=== PATIENT | male | born 1990 | race Hispanic/Latino ===

== ENCOUNTER 2016-08-02 14:46 | Emergency (ER) | payer MEDICAID ==
[2016-08-02 16:45] VITALS: BP 136/91
--- NOTE | 2016-08-02 16:45 | ERNOTE ---
Back Pain ER HPI Date of Service: 08/02/16 Presenting Symptoms: hx chronic back pain Time Seen by Provider: 08/02/16 16:27 Source: patient Exam Limitations: no limitations Immunizations: IMMUNIZATION HX Immunizations Up to Date Yes History of Influenza Vaccine No Hx Pneumococcal Vaccination No Allergies/Adverse Reactions: Allergies No Known Allergies Allergy (Verified 08/02/16 14:56) Home Medications: HOME MEDICATIONS NK [No Home Medication] 08/02/16 [Last Taken Unknown] Narrative: Patient presents with increased chronic pain in his back. He relates this has been there for some time but worse over the last moth or greater. Same pain as he has been having. No acute or new N/T/W. no fever. No new injury. he tells me he was at work and he couldn't work d/t the pain so came in for a work note. Has medications he takes at home for this. There is nothign new or different about this. No fever. No vomiting. No acute N/T/W. Timing: Reports: constant Quality/Severity: Reports: other - same as his chronic back pain, nothgin different about it Location of pain: Reports: upper back, no radiation Recent Injury?: Reports: no Modifying Factors - (Improves): Reports: other - rest Modifying Factors - (Worsens): Reports: movement to right, movement to left, movement flexion Associated Symptoms: Denies: fever/chills, constipation/incontinence, nausea/ vomiting, difficulty walking, numbess/weakness in legs Prior Treament: Reports: other - has had x-rays for this in the past. Review of Systems - Review of Systems Constitutional: Absent: fever EYE: Present: no symptoms reported ENT: Present: no symptoms reported Respiratory: Present: no symptoms reported Cardiology: Present: no symptoms reported Gastrointestinal/Abdominal: Present: no symptoms reported Musculoskeletal: Present: See HPI - Patient's Past Medical History Patient History - Medical: Anxiety, Bipolar, Depression Patient History - Cardiac/Respiratory: No pertinent hx Patient History - Cancer: No Hx of Cancer Patient History - Surgical Procedures: Appendectomy - Family History Mother Family History - Medical: History Unknown Father Family History - Medical: - Social History Living Situations: home Smoking Status: Current every day smoker Have you smoked in the past 12 months: Yes Do you dip or chew tobacco: No Alcohol Use: occasionally Drug Use: none Physical Exam - Physical Exam General Appearance: Present: alert, no apparent distress Eye Exam: Normal inspection: bilateral, PERRL: bilateral Ears, Nose, Throat: Present: normal ENT inspection. Absent: dry mucous membranes Neck: Present: normal inspection Respiratory: Present: no respiratory distress, normal breath sounds, no accessory muscle use, lungs clear Cardiovascular/Chest: Present: regular rate, rhythm Gastrointestinal/Abdominal: Present: normal bowel sounds, nontender, soft, no organomegaly Back Exam: Present: no vertebral tenderness, other - left pasraspinal muscular tenderness. This completely reproduces his pain. Clinically all muscular pain. No vertebral pain.. 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 No motor or sensory deficits.. Absent: motor weakness Skin Exam: Absent: skin rash ED Progress - Vital Signs Patient's Vital Signs:: I have reviewed the patient's vital signs. Vital Signs: Vital Signs 08/02/16 14:53 Temperature 36.8 C Pulse Rate 129 H Respiratory 14 Rate Blood Pressure 161/90 O2 Sat by Pulse 99 Oximetry - Progress/Reassessment Chief Complaint: Back Pain Progress Note-Subjective: 08/02/16 16:43 SAme as chronic. Nothing different about it. he request a work note. I offered him further eval but he declines this. He understands risks and benefits. He wishes only a workl note. No Neuro deficits. I discussed warning signs and reasonss to return as well as the need for close f/u. Nothing to suggest diskitis, abscess or other acute life threat. Departure Clinical Impression: Back pain - Departure Disposition: Home self-care Condition: Stable Instructions: Back Pain, Adult Additional Instructions: Rest. Work note. Follow-up with primary doctor this week. Return for numbness , tingling, weakness, increased pain or if your condition worsens or changes in any way.
== END 2016-08-02 16:48 | disposition home or self-care (01) ==
LOC: ER 14:46
DX: M54.9 Dorsalgia, unspecified (principal); F17.210 Nicotine dependence, cigarettes, uncomplicated

== ENCOUNTER 2016-09-15 07:30 | Emergency (ER) | payer MEDICAID ==
[2016-09-15] MEDS ORDERED: DICYCLOMINE HCL 10 MG/ML AMPUL IM ONE ×2 (08:14→08:19)
[2016-09-15] MEDS ORDERED: ONDANSETRON HCL/PF 2 MG/ML VIAL IV ONE (08:14)
[2016-09-15] MEDS ORDERED: NORMAL SALINE 1,000 ML in NORMAL SALINE 1,000 ML IV ONE (08:14)
[2016-09-15] MEDS ORDERED: ONDANSETRON HCL/PF 2 MG/ML VIAL ONE (08:19)
--- OUTSIDE RECORDS SUMMARY | 2016-09-15 08:25 | XMS REPORT | CCD ---
:1990 Author Name TRUE MARTINEZ Keisha Address [address] [facility] Unavailable [place], [place] [id number] Care Team Providers Name Role Phone JAVAN BUCIO Attending Physician Unavailable JAVAN BUCIO Er Physician 1 Unavailable NOAM Peralta Registered Nurse Unavailable Vital Signs Vital Sign Value Unit Date/Time Recent/Initial? Weight Measured 225 lbs 03/16/2015 14:08 Initial VS Height 66 in 03/16/2015 14:08 Initial VS BMI (Body Mass Index) 36.32 kg/m^2 03/16/2015 14:08 Initial VS BSA (Body Surface Area) 2.18 m^2 03/16/2015 14:08 Initial VS BP Systolic 148 mmHg 03/16/2015 14:08 Initial VS BP Diastolic 86 mmHg 03/16/2015 14:08 Initial VS Allergies Allergy Code Allergy Type Reaction Status No Known Allergies 0 No known allergies Active Procedures Unknown or Not Available. History of Immunizations Unknown or Not Available. Problems Unknown or Not Available. Results Unknown or Not Available. Active Medications Unknown or Not Available. Medications Administered During Visit Unknown or Not Available. Encounters Encounter Diagnosis Diagnosis Code Start Date DENTAL DISORDER NOS 5259 03/16/2015 Social History Smoking Status Code Start Date End Date Current every day smoker [id number] Patient Decision Aids Unknown or Not Available. Discharge Instructions You were admitted to [facility] on 03/16/2015 with a principal diagnosis of DENTAL DISORDER NOS. You were discharged from [facility] on 03/16/2015. Should you have any questions prior to discharge, please contact a member of your healthcare team. If you have left the hospital and have any questions, please contact your primary care physician. Chief Complaint and Reason For Visit Chief Complaint Date of Onset TOOTH PAIN Function Status Unknown or Not Available. Plan of Care Unknown or Not Available. Referral/Transition of Care Unknown or Not Available.
--- OUTSIDE RECORDS SUMMARY | 2016-09-15 08:25 | XMS REPORT | Continuity of Care Document ---
:1990 Author Organization [facility] ([facility]) [place] [address] Phone [phone] Care Team Providers Name Role Phone Provider, No-Primary Care Primary Care Provider Unavailable Source Comments This disclosure is being made pursuant to the Care Everywhere program, applicable federal and state laws, and may not contain all informaitonavailable regarding this patient.[facility] ([facility]) Active Allergies and Adverse Reactions Not on File Current Medications Not on file Active Problems Not on file Social History Tobacco Use Types Packs/Day Years Used Date Never Assessed Last Filed Vital Signs Vital Sign Reading Time Taken Blood Pressure 142/85 03/18/2015 10:41 AM CDT Pulse 90 03/18/2015 10:41 AM CDT Temperature 36.6 C (97.9 F) 03/18/2015 10:41 AM CDT Respiratory Rate 16 03/18/2015 10:41 AM CDT Height - - Weight - - Body Mass Index - - Oxygen Saturation 98% 03/18/2015 10:41 AM CDT Plan of Care Health Maintenance Due Date Last Done Comments Hepatitis B Vaccine (1 of 3 - Primary Series) 1991 HPV Vaccine (1 of 3 - Male 3 Dose Series) 2002 Tdap Vaccine 2002 Lipid Disorder Screening 2009 MMR Vaccine 2009 Td Vaccine 2009 Varicella Vaccine (1 of 2 - Adult - No Evidence of 2009 Immunity) Influenza Vaccine: Seasonal (#1) 02/08/2016 Results from Last 3 Months Not on file
--- OUTSIDE RECORDS SUMMARY | 2016-09-15 08:25 | XMS REPORT | CCD ---
:1990 Author Name TRUE PARRA Address [address] Unavailable [place], [place] [id number] Care Team Providers Name Role Phone JOY RAMOS Attending Physician Unavailable JOY RAMOS Er Physician 1 Unavailable KALEB Peralta Registered Nurse Unavailable Vital Signs Vital Sign Value Unit Date/Time Recent/Initial? Weight Measured 215 lbs 04/09/2015 18:33 Initial VS Height 66 in 04/09/2015 18:33 Initial VS BMI (Body Mass Index) 34.7 kg/m^2 04/09/2015 18:33 Initial VS BSA (Body Surface Area) 2.13 m^2 04/09/2015 18:33 Initial VS BP Systolic 131 mmHg 04/09/2015 18:33 Initial VS BP Diastolic 91 mmHg 04/09/2015 18:33 Initial VS Allergies Allergy Code Allergy Type Reaction Status No Known Allergies 0 No known allergies Active Procedures Procedure Code Procedure Type Date Introduction of Analgesics, Hypnotics, Sedatives [id number] ICD-10 PCS 2014 into Skin and Mucous Memb History of Immunizations Unknown or Not Available. Problems Unknown or Not Available. Results Unknown or Not Available. Active Medications Unknown or Not Available. Medications Administered During Visit Unknown or Not Available. Encounters Encounter Diagnosis Diagnosis Code Start Date Headache R51 04/09/2015 Social History Smoking Status Code Start Date End Date Never smoker [id number] Patient Decision Aids Unknown or Not Available. Discharge Instructions You were admitted to [facility] on 04/09/2015 with a principal diagnosis of Headache. You had the following procedures done:INJECT INFUSE NEC You were discharged from [facility] on 04/09/2015. Should you have any questions prior to discharge, please contact a member of your healthcare team. If you have left the hospital and have any questions, please contact your primary care physician. Chief Complaint and Reason For Visit Chief Complaint Date of Onset ANXIETY Function Status Unknown or Not Available. Plan of Care Unknown or Not Available. Referral/Transition of Care Unknown or Not Available.
--- OUTSIDE RECORDS SUMMARY | 2016-09-15 08:25 | XMS REPORT | CCD ---
:1990 Author Name TRUE MARTINEZ Keisha Address [address] Unavailable [place], [place] [phone] Care Team Providers Name Role Phone JAVAN [...] Date End Date Current every day smoker [id number] Patient Decision Aids Unknown or Not Available. Discharge Instructions You were admitted to [facility] on 03/16/2015 with a principal diagnosis of DENTAL DISORDER NOS. You were discharged from [facility] on 03/16/2015. Should you have any questions [...]
--- OUTSIDE RECORDS SUMMARY | 2016-09-15 08:25 | XMS REPORT | CCD ---
:1990 Author Name TRUE MARTINEZ Address [address] [facility] Unavailable [place], [place] [phone] Care Team Providers Name Role Phone SOFIA DOMINGUEZ Attending Physician Unavailable SOFIA DOMINGUEZ Er Physician 1 Unavailable KALEB Peralta Registered Nurse Unavailable Vital Signs Vital Sign Value Unit Date/Time Recent/Initial? Weight Measured 210 lbs 03/30/2015 14:41 Initial VS Height 66 in 03/30/2015 14:41 Initial VS BMI (Body Mass Index) 33.89 kg/m^2 03/30/2015 14:41 Initial VS BSA (Body Surface Area) 2.11 m^2 03/30/2015 14:41 Initial VS BP Systolic 140 mmHg 03/30/2015 14:41 Initial VS BP Diastolic 93 mmHg 03/30/2015 14:41 Initial VS Allergies Allergy Code Allergy Type Reaction Status No Known Allergies 0 No known allergies Active Procedures Procedure Code Procedure Type Date EKG 23096333 SNOMED CT 03/30/2015 CT HEAD W/O [id number] SNOMED CT 03/30/[address] 03/30/2015 History of Immunizations Unknown or Not Available. Problems Unknown or Not Available. Results BASIC METABOLIC PANEL - Collect Date/Time: 03/30/2015 15:47 Test Name Code Test Result Test Units Test Ref Range GLUCOSE 113 mg/dL L=74 H=106 SODIUM 140 mmol/L L=136 H=145 POTASSIUM 3.6 mmol/L L=3.5 H=5.1 CHLORIDE 102 mmol/L L=98 H=107 CO2 28 mmol/L L=21 H=32 BUN 11.0 mg/dL L=7.0 H=18.0 CREATININE 0.8 mg/dL L=0.8 H=1.3 BUN/CREAT 13.8 L=7.6 H=21.2 CALCIUM 9.0 mg/dL L=8.6 H=10.1 ANION GAP 13.8 mmol/L L=7.0 H=16.0 AGE 24 YEARS GFR 127.33 ml/min MAGNESIUM, SERUM OR PLASMA - Collect Date/Time: 03/30/2015 15:47 Test Name Code Test Result Test Units Test Ref Range MAGNESIUM 1.8 mg/dL L=1.8 H=2.4 TSH - Collect Date/Time: 03/30/2015 15:47 Test Name Code Test Result Test Units Test Ref Range TSH 3016-3 0.967 uIU/ml L=0.360 H=3.740 CBC W/DIFF - Collect Date/Time: 03/30/2015 15:47 Test Name Code Test Result Test Units Test Ref Range WBC 6690-2 7.0 K/uL L=3.2 H=10.0 RBC 789-8 5.08 M/uL L=4.30 H=5.70 HEMOGLOBIN 718-7 15.8 g/dL L=13.6 H=17.1 HEMATOCRIT 44.6 % L=40.0 H=52.0 MCV 87.8 fL L=81.0 H=101 MCH 31.1 PG L=26.0 H=38.0 MCHC 35.4 G/DL L=31.0 H=37.0 RDW-SD 41.2 FL L=37.0 H=54.0 RDW-CV 13.2 % L=11.0 H=16.0 PLATELETS 228 K/UL L=140 H=380 MPV 9.1 FL L=9.0 H=13.0 %GRAN 51.1 % L=0.0 H=75.0 %LYMPH 36.4 % L=0.0 H=50.0 %MONO 9.6 % L=0.0 H=14.0 %EOS 2.6 % L=0.0 H=6.0 %BASO 0.3 % L=0.0 H=1.0 #GRAN 3.58 K/UL L=1.80 H=7.80 #LYMPH 2.55 K/UL L=0.30 H=4.00 #MONO 0.67 K/UL L=0.00 H=0.70 #EOS 0.18 K/UL L=0.00 H=0.40 #BASO 0.02 K/UL L=0.00 H=0.10 SLIDE REVIEWED? NOT INDICATED N/A MANUAL DIFF NOT INDICATED N/A Active Medications Unknown or Not Available. Medications Administered During Visit Unknown or Not Available. Encounters Encounter Diagnosis Diagnosis Code Start Date SYNCOPE AND COLLAPSE 7802 03/30/2015 Social History Smoking Status Code Start Date End Date Never smoker [id number] Patient Decision Aids Unknown or Not Available. Discharge Instructions You were admitted to [facility] on 03/30/2015 with a principal diagnosis of SYNCOPE AND COLLAPSE. You were discharged from [facility] on 03/30/2015. Should you have any questions prior to discharge, please contact a member of your healthcare team. If you have left the hospital and have any questions, please contact your primary care physician. Chief Complaint and Reason For Visit Chief Complaint Date of Onset PASSING OUT Function Status Unknown or Not Available. Plan of Care Unknown or Not Available. Referral/Transition of Care Unknown or Not Available.
[2016-09-15 08:30] LABS: Hematocrit 46.2 % (42.0-52.0); Hemoglobin 15.7 gm/dL (13.5-18.0); Mean Corpuscular Hemoglobin 30.3 pg (27-31); Mean Platelet Volume 8.6 fl (6.0-9.5); Neutrophil # 4.7 K/mm3 (1.3-6.0); Neutrophil % 57.9 % (42-75.0); Platelet Count 268 K/mm3 (150-450); Red Blood Count 5.19 M/mm3 (4.7-6.0); Red Cell Distribution Width 13.1 % (11.5-14.0); White Blood Count 8.2 K/mm3 (4.0-10.5)
[2016-09-15 08:37] VITALS: BP 156/82
--- NOTE | 2016-09-15 08:46 | ERNOTE ---
Medical Problem HPI - General Chief Complaint: Nausea/Vomiting Time Seen by Provider: 09/15/16 08:10 Source: patient Exam Limitations: no limitations - Immun/Allergies/Home Medications Immunizations: IMMUNIZATION HX Immunizations Up to Date Yes History of Influenza Vaccine No Hx Pneumococcal Vaccination No Allergies/Adverse Reactions: Allergies No Known Allergies Allergy (Verified 09/15/16 07:38) Home Medications: HOME MEDICATIONS Famotidine [Pepcid] 40 mg PO HS #30 tab 09/15/16 [Last Taken Unknown] Ondansetron [Zofran Odt] 4 mg PO Q6H PRN #20 tab 09/15/16 [Last Taken Unknown] - History of Present History Narrative: Patient presents with mid abdominal pain with nausea and vomiting ongoing for approximately the past week. Pain is crampy in nature and moderate in intensity when it arises. He is a smoker, but he denies any alcohol abuse or any history of any gastritis or peptic ulcer disease. Timing: intermittent Review of Systems - Review of Systems Constitutional: Present: See HPI EYE: Present: no symptoms reported ENT: Present: no symptoms reported Respiratory: Present: no symptoms reported Cardiology: Present: no symptoms reported Gastrointestinal/Abdominal: Present: nausea, vomiting, abdominal pain Genitourinary: Present: no symptoms reported Musculoskeletal: Present: no symptoms reported Skin: Present: no symptoms reported Neurological: Present: no symptoms reported Endocrine: Present: no symptoms reported Hematologic/Lymphatic: Present: no symptoms reported Psych: Present: no symptoms reported - Patient's Past Medical History Patient History - Medical: Anxiety, Bipolar, Depression Patient History - Cardiac/Respiratory: No pertinent hx Patient History - Cancer: No Hx of Cancer Patient History - Surgical Procedures: Appendectomy Patient History - Other: None - Family History Mother Family History - Medical: History Unknown Father Family History - Medical: - Social History Living Situations: home Abuse History: No History of abuse Psych History: Hx of Anxiety, Hx of Depression, Hx of Bipolar Disorder Alcohol Use: occasionally Drug Use: none - Immunizations Immunizations Up to Date: Yes Hx Pneumococcal Vaccination: No History of Influenza Vaccine: No Physical Exam - Physical Exam General Appearance: Present: wd/wn, alert, mild distress Eye Exam: Normal inspection: bilateral, PERRL: bilateral Ears, Nose, Throat: Present: normal ENT inspection, H, normal pharynx Neck: Present: normal inspection, nontender Respiratory: Present: no respiratory distress, normal breath sounds, no accessory muscle use, chest nontender, lungs clear Cardiovascular/Chest: Present: regular rate, rhythm, no murmur, normal peripheral pulses Gastrointestinal/Abdominal: Present: normal bowel sounds, no organomegaly, tenderness - periumbilical Rectal Exam: Present: deferred Back Exam: Present: normal inspection, normal range of motion Extremity Exam: Present: normal inspection, non-tender, no edema, normal range of motion Neurological Exam: Present: alert, oriented, normal mood/affect Skin Exam: Present: normal color, warm/dry Lymphatic Exam: Present: no adenopathy ED Progress - Results and Orders Patient's Lab Results:: I have reviewed the patient's lab results. - Vital Signs Patient's Vital Signs:: I have reviewed the patient's vital signs. Vital Signs: Vital Signs 09/15/16 09/15/16 07:34 08:36 Temperature 36.1 C L Pulse Rate 94 84 Respiratory 12 12 Rate Blood Pressure 157/84 156/82 O2 Sat by Pulse 96 98 Oximetry - X-Ray X-Ray #1 X-Ray: abdomen Interpretation: Reviewed by me - Progress/Reassessment Chief Complaint: Nausea/Vomiting Progress:: Improved - Transfer of Care Expected Disposition: Discharge Plan - Plan Plan: He did improve with the Zofran ODT. I suspect he has some low-grade gastritis. We'll try a course of 40 mg of Pepcid at night and Zofran he can take as needed for nausea vomiting. He will need to follow up with his family doctor and I suspect he probably needs an EGD. He declined IV fluid and he declined IM Bentyl at this point, however he is feeling better and we will discharge him back into the care of his primary care physician. Departure - Departure Clinical Impression: Gastritis Qualifiers: Gastritis type: unspecified gastritis Chronicity: acute Gastritis bleeding: without bleeding Qualified Code(s): K29.00 - Acute gastritis without bleeding Disposition: Home self-care Condition: Good Prescriptions: Famotidine [Pepcid] 40 mg PO HS #30 tab Ondansetron [Zofran Odt] 4 mg PO Q6H PRN #20 tab PRN Reason: Nausea And Vomiting
[2016-09-15 08:54] LABS: Urine Bilirubin Negative (NEGATIVE); Urine Blood Negative /ul (NEGATIVE); Urine Color Yellow; Urine Ketone Negative (NEGATIVE); Urine Nitrite Negative (NEGATIVE); Urine Protein Negative (NEGATIVE); Urine Urobilinogen Normal (NORMAL); Urine pH 6.5 pH (5.0-7.0)
[2016-09-15 08:55] LABS: Albumin * 4.1 gm/dl (3.4-5.0); Anion Gap 14.7 mmol/L (6.8-13.8); BUN/Creatinine Ratio 21.3 (9.0-21.6); Bilirubin, Total 0.3 mg/dL (0.0-1.1); Ca. Corrected For Albumin 8.6 mg/dL (8.4-10.2); Carbon Dioxide 24.4 mmol/L (24-32.6); Magnesium 2.1 mg/dL (1.2-2.8); Potassium 4.1 mmol/L (3.4-4.6); Total Protein 8.4 gm/dL (6.2-8.2)
[2016-09-15 08:55] LABS: Urine Appearance Clear; Urine Bacteria TRACE; Urine RBC 0-5 /hpf (0-5); Urine WBC 0-5 /hpf (0-5)
[2016-09-15] MEDS ORDERED: ACETAMINOPHEN 500 MG TABLET PO ONE (09:08)
== END 2016-09-15 09:19 | disposition home or self-care (01) ==
LOC: ER 07:30
DX: K29.00 Acute gastritis without bleeding (principal); Z72.0 Tobacco use

== ENCOUNTER 2016-10-24 08:21 | Emergency (ER) | payer MEDICAID ==
[2016-10-24] MEDS ORDERED: LIDOCAINE HCL 20 ML UDC PO ONE (10:02)
[2016-10-24] MEDS ORDERED: MAG HYDROX/ALUMINUM HYD/SIMETH 30 ML UDC PO ONE (10:02)
--- NOTE | 2016-10-24 10:05 | ERNOTE ---
Abdominal HPI - Narrative Date of Service: 10/24/16 - General Chief Complaint: Abdominal Pain Time Seen by Provider: 10/24/16 09:55 Source: patient Exam Limitations: no limitations - Immun/Allergies/Home Medications Immunizatons: IMMUNIZATION HX Immunizations Up to Date Yes History of Influenza Vaccine No Hx Pneumococcal Vaccination No Allergies/Adverse Reactions: Allergies No Known Allergies Allergy (Verified 10/24/16 08:33) Home Medications: HOME MEDICATIONS Famotidine [Pepcid] 40 mg PO HS #30 tab 09/15/16 [Last Taken Unknown] Lansoprazole/Amoxiciln/Clarith [Prevpac Patient Pack] 1 pkt PO BID #28 pkg 10/24 [Last Taken Unknown] - History of Present Illness Narrative: Pt. comes in with c/o LUQ abd pain and vomiting without nausea daily. Pt. states that he was diagnosed with gastritis a month ago and takes his antacid as needed but it only helps for a little while but when he stops taking it the pain worsens again. Pt. states that eating worsens the pain. Review of Systems - Review of Systems Constitutional: Present: malaise. Absent: recent illness, fever, chills, fatigue EYE: Present: no symptoms reported ENT: Present: no symptoms reported. Absent: nose pain, nose congestion, nasal drainage, sore throat Respiratory: Present: no symptoms reported. Absent: shortness of breath, cough , wheezing Cardiology: Present: no symptoms reported. Absent: chest pain, palpitations, edema Gastrointestinal/Abdominal: Present: vomiting, abdominal pain. Absent: nausea, diarrhea, constipation Genitourinary: Present: no symptoms reported Musculoskeletal: Present: no symptoms reported. Absent: back pain, joint pain Neurological: Present: dizziness/light-headedness - occasional not today. Absent: headache, numbness, tingling Endocrine: Present: no symptoms reported Hematologic/Lymphatic: Present: no symptoms reported Psych: Present: no symptoms reported All Other Systems: All systems neg except as marked - Patient's Past Medical History Patient History - Medical: Anxiety, Bipolar, Depression Patient History - Cardiac/Respiratory: No pertinent hx Patient History - Cancer: No Hx of Cancer Patient History - Surgical Procedures: Appendectomy Patient History - Other: None - Family History Mother Family History - Medical: History Unknown Father Family History - Medical: - Social History Living Situations: home Abuse History: No History of abuse Psych History: Hx of Anxiety, Hx of Depression, Hx of Bipolar Disorder Alcohol Use: occasionally Drug Use: none - Immunizations Immunizations Up to Date: Yes Hx Pneumococcal Vaccination: No History of Influenza Vaccine: No Physical Exam - Physical Exam General Appearance: Present: wd/wn, alert, no apparent distress Eye Exam: Normal inspection: bilateral, PERRL: bilateral, EOMI: bilateral Ears, Nose, Throat: Present: normal ENT inspection, normal pharynx Neck: Present: normal inspection, nontender. Absent: lymphadenopathy (R), lymphadenopathy (L) Respiratory: Present: no respiratory distress, normal breath sounds, no accessory muscle use, chest nontender, lungs clear Cardiovascular/Chest: Present: regular rate, rhythm, no murmur, normal peripheral pulses Gastrointestinal/Abdominal: Present: normal bowel sounds, nondistended, soft, no organomegaly, tenderness - LUQ Back Exam: Present: normal inspection, normal range of motion, no CVA tenderness , no vertebral tenderness Extremity Exam: Present: normal inspection, non-tender, normal range of motion, no edema Neurological Exam: Present: alert, oriented, normal mood/affect, no motor/ sensory deficits Skin Exam: Present: normal color, warm/dry. Absent: pallor, skin rash ED Progress - Vital Signs Patient's Vital Signs:: I have reviewed the patient's vital signs. Vital Signs: Vital Signs 10/24/16 10/24/16 08:29 09:34 Temperature 36.3 C L Pulse Rate 87 83 Respiratory 12 12 Rate Blood Pressure 143/80 147/68 O2 Sat by Pulse 98 98 Oximetry - X-Ray X-Ray #1 X-Ray: abdomen Interpretation: Interp. by me X-ray Comments: prominent rugal folds and retained stool. - Progress/Reassessment Chief Complaint: Abdominal Pain Departure - Departure Clinical Impression: Gastritis Qualifiers: Gastritis type: other gastritis Chronicity: chronic Gastritis bleeding: without bleeding Qualified Code(s): K29.50 - Unspecified chronic gastritis without bleeding Constipation Qualifiers: Constipation type: unspecified constipation type Qualified Code(s): K59.00 - Constipation, unspecified Disposition: Home self-care Condition: Good Instructions: Gastritis, Adult, [id number], Constipation, Adult, [id number] Additional Instructions: Please make appointment to follow up with Dr Colindres at your earliest convenience to discuss EGD. Prescriptions: Lansoprazole/Amoxiciln/Clarith [[facility]] 1 pkt PO BID #28 pkg
--- OUTSIDE RECORDS SUMMARY | 2016-10-24 10:26 | XMS REPORT | Continuity of Care Document ---
:1990 Author Organization [facility] ([facility]) [place] [address] Phone [phone] Care Team Providers Name Role Phone Provider, No-Primary Care Primary Care Provider Unavailable Source Comments This disclosure is being made pursuant to the Care Everywhere program, applicable federal and state laws, and may not contain all informaitonavailable regarding this patient.[facility] ([facility]) Active Allergies and Adverse Reactions Not [...]
[2016-10-24 10:42] LABS: Hemoglobin 14.9 gm/dL (13.5-18.0); Mean Cell Volume 88.2 fl (78-100); Mean Corpuscular Hemoglobin 29.9 pg (27-31); Mean Corpuscular Hgb Conc 33.9 g/dl (32-36); Mean Platelet Volume 8.9 fl (6.0-9.5); Neutrophil # 4.9 K/mm3 (1.3-6.0); Neutrophil % 58.8 % (42-75.0); Platelet Count 255 K/mm3 (150-450); Red Blood Count 4.99 M/mm3 (4.7-6.0); Red Cell Distribution Width 13.2 % (11.5-14.0); White Blood Count 8.4 K/mm3 (4.0-10.5)
[2016-10-24 10:55] LABS: Albumin * 3.8 gm/dl (3.4-5.0); Anion Gap 12.6 mmol/L (6.8-13.8); BUN/Creatinine Ratio 16.2 (9.0-21.6); Bilirubin, Total 0.4 mg/dL (0.0-1.1); Ca. Corrected For Albumin 8.6 mg/dL (8.4-10.2); Calcium * 8.8 mg/dL (7.9-10.9); Carbon Dioxide 27.3 mmol/L (24-32.6); Potassium 3.9 mmol/L (3.4-4.6); Total Protein 7.8 gm/dL (6.2-8.2)
[2016-10-24 11:38] VITALS: BP 140/80
== END 2016-10-24 11:35 | disposition home or self-care (01) ==
LOC: ER 08:21
DX: K29.50 Unspecified chronic gastritis without bleeding (principal); K59.00 Constipation, unspecified